=== PATIENT | male | born 1940 | race Caucasian/White ===

== ENCOUNTER → 2016-11-26 | Outpatient (CLI) | payer MEDICARE, OTHER ==
[~2016-11-26] MED LIST: AMLO5TAB2 PO; ASPI-621 PO; CHOL500015 PO; EZET1TAB5 PO; FINA5TAB4 PO; FURO-93 PO; GABA300C10 PO; GLUC500T8 PO; METF500T4 PO; METO-93 PO; MULT-321 PO; NAPR500T8 PO; NIAC500T10 PO; OMEG-14 PO; TADA5TAB2 PO; UBIQ75CA PO; VALS1TAB30 PO; VITAMIN B12 PO
[2016-11-26 16:41] LABS: ASPARTATE AMINO TRANSFERASE 20 U/L (15-37); BLOOD UREA NITROGEN 32 mg/dL (7-18)
[2016-11-26 16:59] LABS: PATH.CAST-FLAG NOT PRESENT; SPERM-FLAG NOT PRESENT; SRC-FLAG NOT PRESENT; XTAL-FLAG NOT PRESENT; YLC-FLAG NOT PRESENT
== END | disposition home or self-care (01) ==
LOC: STAR 15:27
PROVIDERS: ATTEND Orthopaedic Surgery
DX: Z01.818 Encounter for other preprocedural examination (principal); M16.11 Unilateral primary osteoarthritis, right hip; R82.99 Other abnormal findings in urine
CPT/HCPCS: 36415; 80053; 81001; 85025; 87081; 87086; 93005

== ENCOUNTER 2016-12-02 09:46 | Inpatient (IN) | payer MEDICARE, OTHER ==
[~2016-12-02] VITALS: Ht 172.7 cm; Wt 108.0 kg
[2016-12-02] MEDS ORDERED: LACTATED RINGERS 1,000 ML IV SCH (10:22)
[2016-12-02 10:24] VITALS: BP 149/86
[2016-12-02] MEDS ORDERED: KETOROLAC 60 MG/2 ML ONE (11:37)
[2016-12-02] MEDS ORDERED: ROPIvacaine/PF 0.2%, 20 ML ONE (11:38)
[2016-12-02] MEDS ORDERED: SODIUM CHLORIDE 0.9% 50 ML ONE (11:38)
[2016-12-02] MEDS ORDERED: TRANEXAMIC ACID 100 MG/ML, 10ML ONE ×2 (11:38→14:30)
[2016-12-02] MEDS ORDERED: EPINEPHRINE 1 MG/ML, 1ML ONE (11:38)
[2016-12-02] MEDS ORDERED: FENTANYL PF 250 MCG/5ML ONE (11:46)
[2016-12-02] MEDS ORDERED: MIDAZOLAM 1 MG/ML, 2ML ONE (11:47)
[2016-12-02] MEDS ORDERED: PROPOFOL 10 MG/ML, 20ML ONE (12:37)
[2016-12-02] MEDS ORDERED: ONDANSETRON 2MG/ML, 2ML ONE (12:37)
[2016-12-02] MEDS ORDERED: CEFAZOLIN 1,000 MG ONE (12:37)
[2016-12-02] MEDS ORDERED: PROMETHAZINE 25 MG/ML, 1ML IV PRN (14:00)
[2016-12-02] MEDS ORDERED: ACETAMINOPHEN 325 MG TABLET PO PRN (14:00)
[2016-12-02] MEDS ORDERED: ONDANSETRON 2MG/ML, 2ML IVPush PRN (14:00)
[2016-12-02] MEDS ORDERED: LABETALOL 5MG/ML, 20ML IV PRN (14:00)
[2016-12-02] MEDS ORDERED: EPHEDRINE 50 MG/ML, 1ML IVPush PRN (14:00)
[2016-12-02] MEDS ORDERED: ALBUTEROL/IPRATROPIUM 2.5MG/0.5MG, 3 ML NPPB PRN (14:00)
[2016-12-02] MEDS ORDERED: hydrALAzine 20 MG/ML, 1ML IV PRN (14:00)
[2016-12-02] MEDS ORDERED: ALBUTEROL SULFATE 2.5 MG/3 ML NPPB PRN (14:00)
[2016-12-02] MEDS ORDERED: HYDROmorphone 1 MG/ML, 1ML IV PRN ×2 (14:00→15:30)
[2016-12-02] MEDS ORDERED: METOPROLOL 1 MG/ML, 5ML IV PRN (14:00)
[2016-12-02] MEDS ORDERED: OXYcodone 5 MG/5 ML ORAL.SOL UDC PO PRN (14:00)
[2016-12-02] MEDS ORDERED: ACETAMINOPHEN 650 MG/20.3 ML UDC ONE (15:19)
[2016-12-02] MEDS ORDERED: FENTANYL PF 100 MCG/2ML ONE (15:19)
[2016-12-02] MEDS ORDERED: OXYcodone 5 MG/5 ML ORAL.SOL UDC ONE (15:20)
[2016-12-02] MEDS: FENTANYL PF 100 MCG/2ML IV PRN ×2 (15:22→15:29)
[2016-12-02] MEDS ORDERED: DIPHENHYDRAMINE 50 MG CAPSULE PO PRN (15:30)
[2016-12-02] MEDS ORDERED: ALUMINUM/MAG/SIMETHICONE 30 ML UDC PO PRN (15:30)
[2016-12-02] MEDS ORDERED: PROMETHAZINE 25 MG/ML, 1ML IM PRN (15:30)
[2016-12-02] MEDS ORDERED: ZOLPIDEM 5MG TABLET PO PRN (15:30)
[2016-12-02] MEDS ORDERED: ONDANSETRON 2MG/ML, 2ML IV PRN (15:30)
[2016-12-02] MEDS ORDERED: MAGNESIUM HYDROXIDE 8%, 30ML UDC PO PRN (15:30)
[2016-12-02] MEDS ORDERED: PROMETHAZINE 12.5 MG SUPP PR PRN (15:30)
[2016-12-02] MEDS ORDERED: DIAZEPAM 5 MG TABLET PO PRN (15:30)
[2016-12-02] MEDS: ACETAMINOPHEN 650 MG/20.3 ML UDC PO SCH ×2 (15:30→20:12)
[2016-12-02] MEDS ORDERED: ONDANSETRON 4 MG TABLET PO PRN (15:30)
[2016-12-02] MEDS ORDERED: SENNA/DOCUSATE TABLET PO PRN (15:30)
[2016-12-02] MEDS ORDERED: BISACODYL 10 MG SUPP PR PRN (15:30)
[2016-12-02] MEDS ORDERED: OXYcodone IR 5MG TABLET PO PRN (15:30)
[2016-12-02] MEDS ORDERED: SCOPOLAMINE PATCH, 1.5MG PATCH.TD72 TD SCH (15:30)
[2016-12-02] MEDS: TAMSULOSIN 0.4 MG CAP.ER.24H PO SCH (15:35)
[2016-12-02] MEDS ORDERED: HYDROmorphone 2 MG/ML, 1ML ONE (15:41)
[2016-12-02] MEDS ORDERED: TRANEXAMIC ACID 1,000 MG in SODIUM CHLORIDE 0.9% 100 ML IVPB ONE (15:45)
[2016-12-02] MEDS: GABAPENTIN 300 MG CAPSULE PO SCH ×2 (16:00→20:14)
[2016-12-02 16:50] VITALS: BP 112/70
[2016-12-02 18:36] VITALS: BP 109/70
[2016-12-02] MEDS: D5%-0.45% NACL 1,000 ML IV SCH (18:43)
[2016-12-02] MEDS: ASPIRIN 81 MG TABLET EC PO SCH (18:43)
[2016-12-02] MEDS: DOCUSATE 100 MG CAPSULE PO SCH (20:14)
[2016-12-02] MEDS: metFORMIN 500 MG TABLET PO SCH (20:16)
[2016-12-02] MEDS: CEFAZOLIN PMX 2GM/50ML 50 ML IVPB SCH (20:40)
[2016-12-03] MEDS: ACETAMINOPHEN 650 MG/20.3 ML UDC PO SCH ×3 (01:19→10:34)
[2016-12-03] MEDS: PREGABALIN 75 MG CAPSULE PO SCH ×2 (01:20→10:31)
[2016-12-03 01:38] VITALS: BP 128/62
[2016-12-03] MEDS: D5%-0.45% NACL 1,000 ML IV SCH ×2 (03:00→11:00)
[2016-12-03] MEDS: CEFAZOLIN PMX 2GM/50ML 50 ML IVPB SCH (04:53)
[2016-12-03] MEDS ORDERED: DEXAMETHASONE 4 MG/ML, 1ML IVPush SCH (06:00)
[2016-12-03] MEDS: ASPIRIN 81 MG TABLET EC PO SCH (06:01)
[2016-12-03 06:07] VITALS: BP 118/70
[2016-12-03 07:54] VITALS: BP 117/75
[2016-12-03] MEDS ORDERED: [UNRECOGNIZED DRUG - OTHER] PO SCH (09:00)
[2016-12-03] MEDS ORDERED: MULTIVITAMINS/MINERALS TABLET PO SCH (09:00)
[2016-12-03] MEDS ORDERED: TEMPLATE NON-FORMULARY MED. (Ezetimibe/Simvastatin** (Vytorin 10-40 Mg Tablet**) 1 TAB) PO SCH (09:00)
[2016-12-03] MEDS ORDERED: VALSARTAN PO SCH (09:00)
[2016-12-03] MEDS ORDERED: METOPROLOL SUCCINATE 50 MG TAB.ER.24H PO SCH (09:00)
[2016-12-03] MEDS ORDERED: AMLODIPINE 5 MG TABLET PO SCH (09:00)
[2016-12-03] MEDS ORDERED: HYDROCHLOROTHIAZIDE PO SCH (09:00)
[2016-12-03] MEDS: metFORMIN 500 MG TABLET PO SCH (10:31)
[2016-12-03] MEDS: DOCUSATE 100 MG CAPSULE PO SCH (10:31)
[2016-12-03] MEDS: TAMSULOSIN 0.4 MG CAP.ER.24H PO SCH (10:31)
[2016-12-03 11:40] VITALS: BP 116/70
[2016-12-03] MEDS ORDERED: OXYC5CAP4 PO (11:56)
[2016-12-03] MEDS ORDERED: KETOROLAC 30 MG/1 ML IV SCH (15:30)
== END 2016-12-03 12:13 | disposition home or self-care (01) | DRG 470 ==
LOC: ORIP 09:46 → 4NOR 16:42 → DCLOUNGE 12-03 11:52
PROVIDERS: ADMIT Orthopaedic Surgery; ATTEND Orthopaedic Surgery
PROC: 0SR902Z Replacement of Right Hip Joint with Metal on Polyethylene Synthetic Substitute, Open Approach (ICD-10-PCS; principal; 2016-12-02 12:30)
DX: M16.11 Unilateral primary osteoarthritis, right hip (principal); E11.9 Type 2 diabetes mellitus without complications; E78.5 Hyperlipidemia, unspecified; Z88.8 Allergy status to other drugs, medicaments and biological substances
CPT/HCPCS: 36415; 82962; 85014; 85018; 86850; 86900; C1713; J0171; J0690; J1100; J1170; J1885; J2250; J2405; J2704; J2795; J3010; C1776; J7120

== ENCOUNTER 2016-12-09 18:03 | Emergency (ER) | payer MEDICARE, OTHER ==
[~2016-12-09] VITALS: Ht 172.7 cm; Wt 108.9 kg
[~2016-12-09 18:03] MED LIST changes: +OXYC5CAP4 PO
[2016-12-09 19:04] VITALS: BP 110/59
[2016-12-09 19:14] LABS: BLOOD UREA NITROGEN 19 mg/dL (7-18)
== END 2016-12-09 19:45 | disposition home or self-care (01) ==
LOC: ED 19:15
DX: R60.0 Localized edema (principal); I10 Essential (primary) hypertension; E11.9 Type 2 diabetes mellitus without complications
CPT/HCPCS: 36415; 80048; 82040; 85025; 93005; 99285